=== PATIENT | female | born 1970 | race Caucasian/White ===

== ENCOUNTER 2017-11-09 14:52 | Emergency (ER) | payer MEDICARE, SELFPAY ==
[2017-11-09 14:53] VITALS: BP 120/81; PULSE 97; RESP 16; TEMP 36.8; O2SAT 98; BMI 23.1
--- NOTE | 2017-11-09 15:10 | ED.DEP ---
ED Disposition - Plan for ED Patient: Chief Complaint: General Illness Instructions: ED Sinusitis Abx Tx Prescriptions: Amox/Clavulanate Tablet [Augmentin Tablet] 875 mg PO Q12H #20 tablet Referrals: [facility] Doctor,Out of [Primary Care Provider] -
[2017-11-09 15:11] VITALS: BP 115/80; PULSE 90; RESP 14; O2SAT 99
--- NOTE | 2017-11-09 15:14 | ED.VISSUMM ---
- ER Visit Summary Date of Service: 11/09/17 Chief Complaint: Concern for sinus infection History of Present Illness: The patient is a 47 F presenting with concern for sinus infection. She has had symptoms for over a week. She has pain in her maxillary sinuses and nasal congestion. She denies fever. She states she felt similar to this in the past with sinus infections. She also states that she was bitten by a horse 2 weeks ago on her right side. Denies dysuria or hematuria. Denies abdominal pain. No other complaints. Physical Examination: Vitals are stable. Patient is afebrile. Alert no acute distress. HEENT exam mild bilateral maxillary sinus tenderness, pharynx is normal, TMs normal bilaterally. Neck is supple. No meningismus Lungs are clear and equal bilaterally. Heart is regular rate and rhythm. Abdomen is soft nontender nondistended. Back: Mild ecchymosis right flank with no significant tenderness. No signs of infection. Extremities are unremarkable. Skin is warm and dry. No focal neurologic deficit. Remainder of exam is unremarkable. Emergency Department Course and Treatment: Due to her duration of symptoms, she was given Augmentin for sinusitis. She is advised to follow-up with her primary care physician when she returns home to [place]. She is advised return to the ED for any worsening complaints. Disposition: Discharge home Impression: Sinusitis This note was generated with [employer] dictation software. It may contain incorrect words, spelling, and punctuation that were not noted in review of the chart prior to signing ED Disposition - Plan for ED Patient: Chief Complaint: General Illness Instructions: ED Sinusitis Abx Tx Prescriptions: Amox/Clavulanate Tablet [Augmentin Tablet] 875 mg PO Q12H #20 tablet Referrals: [facility] ,Out of [Primary Care Provider] -
[2017-11-09] MEDS: Amox/Clavulanate 875 MG Tablet PO (15:18)
== END 2017-11-09 15:39 | disposition home or self-care (01) ==
LOC: ED 15:35
PROVIDERS: Emergency Provider Emergency Medicine
DX: J32.9 Chronic sinusitis, unspecified (principal); Z72.0 Tobacco use
CPT/HCPCS: 99283